=== PATIENT | male | born 1985 | race Hispanic/Latino ===

== ENCOUNTER 2024-09-13 03:33 | Emergency (ER) | payer SELFPAY ==
[~2024-09-13] VITALS: Ht 167.6 cm; Wt 74.4 kg
[~2024-09-13 03:33] MED LIST: DIPH25TA51 PO; METH4TAB3 PO
[2024-09-13 03:59] VITALS: TEMP 98.4
--- NOTE | 2024-09-13 03:59 | NUR ---
Note undone in EDM - 09/13/24 at 0622 by AMOREGILDARDO PT PRESENTS TO ED WITH RIGHT EYE SWOLLEN SHUT, NOTED TO HAVE DRIED BLOOD AROUND EYE AND A LACERAION TO THE RIGHT EYEBROW. PT REPORTS HE FELL AT WORK AROUND 2300 OF 09/12/2024 AND WENT HOME AFTERWARD TO "SLEEP IT OFF". DENIES LOC, NAUSEA, OR VOMITING. PT DENIES ANY BLOODTHINNERS AT THIS TIME. PT STATES SWELLING WORSENED OVERNIGHT, PROMPTING ED VISIT. NO ACTIVE BLEEDING NOTED AT THIS TIME. PT IS ALERT AND ORIENTED X4 IN NO ACUTE DISTRESS.
--- NOTE | 2024-09-13 03:59 | NUR ---
PT PRESENTS TO ED WITH LEFT EYE SWOLLEN SHUT, NOTED TO HAVE DRIED BLOOD AROUND EYE AND A LACERAION TO THE LEFT EYEBROW. PT REPORTS HE FELL AT WORK AROUND 2300 OF 09/12/2024 AND WENT HOME AFTERWARD TO "SLEEP IT OFF". DENIES LOC, NAUSEA, OR VOMITING. PT DENIES ANY BLOODTHINNERS AT THIS TIME. PT STATES SWELLING WORSENED OVERNIGHT, PROMPTING ED VISIT. NO ACTIVE BLEEDING NOTED AT THIS TIME. PT IS ALERT AND ORIENTED X4 IN NO ACUTE DISTRESS.
--- NOTE | 2024-09-13 04:15 | NUR ---
LACERATION AND DRIED BLOOD CLEANED AT THIS TIME.
--- NOTE | 2024-09-13 04:28 | ERN ---
General Chief Complaint: Mechanical Fall Stated Complaint: C/O LACERATION,SWELLING TO LEFT EYE Time Seen by MD: 03:51 History of Present Illness Initial Comments Patient 38-year-old male fell onto his face and noticed immediate bleeding from his left eyelid and periorbital swelling. He states no visual loss. Allergies: Coded Allergies: No Known Drug Allergies (Unverified Allergy, Unknown, 08/28/17) Home Meds Active Scripts Methylprednisolone (Medrol) 4 Mg Tab.ds.pk, 4 MG PO AD, #1 PACK Prov:NILSON [employer] 08/31/17 Diphenhydramine HCl (Benadryl Allergy) 25 Mg Tablet, 25 MG PO HS for 7 Days, #7 TAB Prov:N[employer]SON [employer] 08/31/17 Past Medical History Past Medical History: No Pertinent History Past Surgical History: None ROS Dictation Review of systems negative beyond what is in the chief complaint. Physical Exam Orientation: (+) alert, (+) oriented x 3 Eye: bilateral eye normal inspection, bilateral eye PERRL, bilateral eye EOMI Eyes Comment Patient can move his left eye in all directions. There does not appear to be any muscle entrapment. There is scleral injection and patient does wonder if he has something in his eye. Left pupil reactive to light. There is a full- thickness laceration in his left eyebrow. Results Laboratory and Microbiology Lab and Micro Result Laboratory Tests Test 09/13/24 04:22 09/13/24 05:13 Sodium Level 134 mmol/L (136-145) L Potassium Level 3.6 mmol/L (3.5-5.1) Chloride Level 97 mmol/L (101-111) L Carbon Dioxide Level 22 mmol/L (21-32) Blood Urea Nitrogen 5 mg/dL (7-18) L Creatinine 0.8 mg/dL (0.5-1.3) Glomerular Filtration Rate Calc 118 mL/min (>90) Random Glucose 410 mg/dL (70-105) *H Total Calcium 9.3 mg/dL (8.5-10.1) Whole Blood Glucose 332 MG/DL (70-110) H MDM I will order a max face CT scan rule out fractures and entrapment. And then examine his eye with fluorescein and suture the laceration. Before the patient could get his CT scan and before I could fix the laceration to his left eyebrow the patient left the hospital. ED Course Orders Procedure Category Date Status Time Ct Maxillofacial W/Wo CT 09/13/24 Logged Contrast 03:52 Basic Metabolic Panel LAB 09/13/24 Complete 03:52 Insulin Regular, PHA 09/13/24 Complete Human 3ml (Humulin R 05:00 Insulin Regular, PHA 09/13/24 In Process Human 3ml (Humulin R 06:00 Iohexol (Omnipaque) PHA 09/13/24 Complete 05:50 Current Medications Medications (Trade) Dose Ordered Sig/[place] Route PRN Reason Start Time Stop Time Status Last Admin Dose Admin Insulin Human Regular (humuLIN R 100 UNIT/ML 3ML) 15 unit ONCE ONCE SQ 09/13/24 06:00 09/13/24 06:01 Insulin Human Regular (humuLIN R 100 UNIT/ML 3ML) 20 unit ONCE ONCE SQ 09/13/24 05:00 09/13/24 05:42 DC Iohexol (Omnipaque) 75 ml STK-MED ONCE IV 09/13/24 05:50 09/13/24 05:50 DC Vital Signs Date Time Temp Pulse Resp B/P (MAP) Pulse Ox O2 Delivery O2 Flow Rate FiO2 09/13/24 03:59 98.4 105 22 134/80 99 Room Air* 0 21 09/13/24 03:35 97.3 112 20 136/86 97 Room Air DX & DISP Disposition: AMA Departure Impression: Primary Impression: Laceration of forehead, left, complicated Condition: Stable Referrals: SELF,REFERRAL (PCP) HERMINIO CHRISTINA MD Sep 13, 2024 04:28
[2024-09-13 04:51] LABS: CREATININE 0.8 mg/dL (0.5-1.3); GLOMERULAR FILTR. RATE CALC 118.0 mL/min (>90); SODIUM SERUM 134.0 mmol/L (136-145); UREA NITROGEN, BLOOD 5.0 mg/dL (7-18)
[2024-09-13 05:00] VITALS: BP 136/84; PULSE 102; RESP 20; O2SAT 99
[2024-09-13 05:00] LABS: GLUCOSE,RANDOM 410.0 mg/dL (70-105)
[2024-09-13] MEDS ORDERED: IOHEXOL-350 75 ML VIAL IV ONE (05:50)
--- NOTE | 2024-09-13 05:52 | NUR ---
PT ELOPED FROM ED WITHOUT NOTIFYING STAFF. LAST SEEN 512 IN ROOM ED 13. PT REMOVED MONITOR AND IV. ED RN SEARCHED ED AND ED WAITING ROOM IN ATTEMPT TO FIND PT. ED MD NOTIFIED AT THIS TIME.
== END 2024-09-13 05:52 | disposition left against medical advice (07) ==
LOC: EDH 03:33
DX: S01.112A Laceration without foreign body of left eyelid and periocular area, initial encounter (principal); Z79.899 Other long term (current) drug therapy; W19.XXXA Unspecified fall, initial encounter; Y93.89 Activity, other specified; Y92.89 Other specified places as the place of occurrence of the external cause; Y99.8 Other external cause status
CPT/HCPCS: 99283; 80048; 82948; 36415; J1815; Q9967